=== PATIENT | female | born 1995 | race Caucasian/White ===

== ENCOUNTER 2019-01-02 07:36 | Emergency (ER) | payer OTHER ==
[~2019-01-02] VITALS: Ht 157.5 cm; Wt 91.0 kg
[~2019-01-02 07:36] MED LIST: BENADRYL25 MG PO; BIRTH CONTROL; PEPCID AC20 M1 PO; PREDNISONE 20 M20 M1 PO; SYNTHROID100 MCG
[2019-01-02 07:59] LABS: URINE BILIRUBIN NEGATIVE (Negative); URINE BLOOD NEGATIVE (Negative); URINE CLARITY CLEAR; URINE COLOR YELLOW; URINE GLUCOSE-RANDOM NEGATIVE (Negative); URINE KETONES NEGATIVE (Negative); URINE LEUKOCYTES-REFLEX NEGATIVE (Negative); URINE NITRITE-REFLEX NEGATIVE (Negative); URINE PROTEIN NEGATIVE (Negative); URINE SPECIFIC GRAVITY >= 1.030 (1.005-1.030); URINE UROBILINOGEN 0.2 E.U./dl (0.2-1.0)
[2019-01-02 08:07] LABS: ABSOLUTE EOSINOPHILS 0.2 thou/uL (0.0-0.7); ABSOLUTE MONOCYTES 0.4 thou/uL (0.0-1.2); ABSOLUTE NEUTROPHILS 4.2 thou/uL (1.6-8.1); BASOPHILS 0.6 %; HEMATOCRIT 42.5 % (37.0-47.0); HEMOGLOBIN 14.6 gm/dL (12.0-15.0); LYMPHOCYTES 17.9 %; MCHC 34.3 g/dL (28.0-37.0); MCV 90.2 fL (80.0-100.0); MONOCYTES 6.7 %; MPV 8.7 fl. (7.2-11.1); NUCLEATED RBCS 0 /100WBC; PLATELET COUNT* 214 thou/uL (150-400); POLYS 71.8 %; RBC 4.72 mil/uL (4.20-5.00); RDW-CV 13.9 % (10.5-14.5); WBC 5.8 thou/uL (4.0-11.0)
[2019-01-02 08:30] LABS: CALCIUM 8.9 mg/dL (8.5-10.1); CREATININE 0.7 mg/dL (0.6-1.3)
[2019-01-02 08:34] LABS: ALBUMIN 3.8 g/dL (3.4-5.0); TOTAL BILIRUBIN 0.6 mg/dL (<0.1-1.0); TOTAL PROTEIN 7.5 g/dL (6.4-8.2)
[2019-01-02 08:35] LABS: POTASSIUM 4.3 mmol/L (3.5-5.1)
[2019-01-02 09:06] VITALS: BP 128/72
== END 2019-01-02 09:07 | disposition home or self-care (01) ==
LOC: M.ERS 07:36
PROVIDERS: Family Medicine
DX: R19.7 Diarrhea, unspecified (principal); R10.9 Unspecified abdominal pain; E03.9 Hypothyroidism, unspecified; F41.9 Anxiety disorder, unspecified; F32.9 Major depressive disorder, single episode, unspecified

== ENCOUNTER 2021-10-10 17:47 | Emergency (ER) | payer MEDICAID ==
[~2021-10-10] VITALS: Ht 157.5 cm; Wt 77.1 kg
[2021-10-10] MEDS ORDERED: LEVO-T25 MCG PO (18:06)
[2021-10-10 18:36] LABS: INFLUENZA A ANTIGEN Negative (Negative); INFLUENZA B ANTIGEN Negative (Negative)
[2021-10-10] MEDS ORDERED: VENTOLIN HFA 1818 GM INH (20:23)
[2021-10-10] MEDS ORDERED: IBUPROFEN 800800 M1 PO (20:23)
[2021-10-10] MEDS ORDERED: ZOFRAN ODT4 MG PO (20:23)
[2021-10-10] MEDS ORDERED: FLEXERIL PO (20:23)
[2021-10-10 20:35] VITALS: BP 103/61
== END 2021-10-10 20:35 | disposition home or self-care (01) ==
LOC: M.ERS 17:47
PROVIDERS: Nurse Practitioner Family
DX: U07.1 COVID-19 (principal); E86.0 Dehydration; E03.9 Hypothyroidism, unspecified; Z79.899 Other long term (current) drug therapy